=== PATIENT | female | born 1965 | race Native Hawaiian/Other Pacific Islander ===

== ENCOUNTER 2022-12-22 12:55 | Emergency (ER) | payer OTHER ==
[2022-12-22] MEDS ORDERED: BABY ASPIRIN 81 MG CHEW PO ONE (13:06)
--- NOTE | 2022-12-22 13:06 | ERPHSYRPT ---
- History of Present Illness Time Seen by Provider: 12/22/22 13:06 Historian: patient Exam Limitations: no limitations Physician History: This is a 57-year-old white female patient who presents to the emergency department with intermittent epigastric, substernal chest pain over the last 2 weeks that she describes as a pressure. At times it radiates into her back and today she became concerned because it went up into her neck on the left side. Patient has been worked up and found to have autoimmune disorders including rheumatoid arthritis, Raynaud's disease and lupus. She is also had watery diarrhea. She has been seeing a management intern and a GI specialist for these medical issues. She was also concerned about rising blood pressure. Her blood pressure on arrival to our emergency department is systolic blood pressure 140 over a diastolic blood pressure of 90. Patient does continue to smoke but is decreasing her cigarette smoking intake. Timing/Duration: week(s) (Intermittently for 2 weeks) Quality: pressure Location: substernal, central, epigastric Chest Pain Radiation: neck (Left side), back Severity of Pain-Max: mild Severity of Pain-Current: mild Modifying Factors: Improves With: nothing Associated Symptoms: edema (Not today but has noticed that at times she is having foot and ankle edema. Her management intern, primary care doctor are aware) Prior Chest Pain/Cardiac Workup: no prior cardiac workup Nitro Today/Relief: no nitro taken today Aspirin Treatment Today: no aspirin today Allergies/Adverse Reactions: No Known Drug Allergies Allergy (Unverified 12/22/22 12:57) Home Medications: Hydroxychloroquine Sulfate [Plaquenil] 200 mg PO DAILY 12/22/22 [History] Pilocarpine HCl [Salagen] 5 mg PO TID 12/22/22 [History] Varenicline Tartrate 1 mg PO DAILY 12/22/22 [History] Travel Risk - International Travel Have you traveled outside of the country in past 3 weeks: No - Coronavirus Screening Are you exhibiting any of the following symptoms?: No Close contact with a COVID-19 positive Pt in past 14-21 Days: No - Review of Systems Constitutional: No Symptoms Eyes: No Symptoms Ears, Nose, & Throat: No Symptoms Respiratory: No Symptoms Cardiac: Chest Pain Abdominal/Gastrointestinal: No Symptoms Genitourinary Symptoms: No Symptoms Musculoskeletal: No Symptoms Skin: No Symptoms Neurological: No Symptoms Psychological: No Symptoms Endocrine: No Symptoms Hematologic/Lymphatic: No Symptoms Immunological/Allergic: No Symptoms All Other Systems: Reviewed and Negative - Past Medical History Pertinent Past Medical History: Yes Other Medical History: auto immune- lupus - Past Surgical History Past Surgical History: Yes Female Surgical History: Tubal Ligation, Other Other Surgical History: breast implants - Social History Drug Use: none - Nursing Vital Signs Nursing Vital Signs: Initial Vital Signs O2 Sat by Pulse Oximetry 97 12/22/22 13:12 Pain Scale Pain Intensity 2 - Physical Exam General Appearance: no apparent distress, alert, anxiety Eye Exam: PERRL/EOMI, eyes nml inspection Ears, Nose, Throat Exam: normal ENT inspection, moist mucous membranes Neck Exam: normal inspection, non-tender, supple, full range of motion Respiratory Exam: normal breath sounds, chest tenderness, lungs clear, airway intact, No respiratory distress Cardiovascular Exam: regular rate/rhythm, normal heart sounds, normal peripheral pulses Gastrointestinal/Abdomen Exam: soft, normal bowel sounds, No tenderness Pelvic Exam: not done Rectal Exam: not done Back Exam: normal inspection, normal range of motion, No CVA tenderness, No vertebral tenderness Extremity Exam: normal inspection, normal range of motion, pelvis stable Neurologic Exam: alert, oriented x 3, cooperative, cardiovascular or nurse II-XII nml as tested, normal mood/affect, nml cerebellar function, nml station & gait, sensation nml Skin Exam: normal color, warm, dry Lymphatic Exam: No adenopathy SpO2 Interpretation: normal O2 Delivery: Room Air - Course Nursing assessment & vital signs reviewed: Yes EKG Interpreted by Me: RATE ([id number]), Left [place] Deviation, NORMAL INTERVALS, NORMAL QRS, NORMAL ST-T, Other Ordered Tests: Active Orders 24 hr Category Date Time Status Lidar Scientist STAT Care 12/22/22 13:07 Active EKG-ER Only STAT Care 12/22/22 13:06 Active IV Insertion STAT Care 12/22/22 13:06 Active Pulse Oximetry (ED) STAT Care 12/22/22 13:06 Active CHEST 1 VIEW (PORTABLE) Stat Exams 12/22/22 13:13 Completed CHEST WITH CONTRAST [CT] Stat Exams 12/22/22 14:59 Completed CBC W DIFF Stat Lab 12/22/22 13:14 Completed CMP Stat Lab 12/22/22 13:14 Completed D-DIMER QUANTITATIVE Stat Lab 12/22/22 13:14 Completed PROTIME WITH INR Stat Lab 12/22/22 13:14 Completed TROPONIN Q4H Lab 12/22/22 13:14 Completed TROPONIN Q4H Lab 12/22/22 17:15 Ordered TROPONIN Q4H Lab 12/22/22 21:15 Ordered Medication Summary Discontinued Medications Generic Name Dose Route Start Last Admin Trade Name Puneet PRN Reason Stop Dose Admin Aspirin 324 mg 12/22/22 13:06 12/22/22 13:32 Aspirin 81 Mg Tab.Chew PO 12/22/22 13:07 324 mg STAT ONE Administration Aspirin Confirm 12/22/22 13:25 Aspirin 81 Mg Tab.Chew Administered 12/22/22 13:26 Dose 324 mg .ROUTE .STK-MED ONE Sodium Chloride 500 mls @ 500 mls/hr 12/22/22 14:01 12/22/22 15:23 Sodium Chloride 0.9% 500 Ml IV 12/22/22 15:00 Infused .Q1H ONE Infusion Sodium Chloride Confirm 12/22/22 14:08 Sodium Chloride 0.9% 500 Ml Administered 12/22/22 14:09 Dose 500 mls @ ud IV .STK-MED ONE Lab/Rad Data: Laboratory Result Diagrams 12/22/22 13:14 12/22/22 13:14 Laboratory Results 12/22/22 12/22/22 12/22/22 Range/Units 13:14 13:14 13:14 WBC (4.0-10.5) x10^3/uL RBC (4.1-5.4) x10^6/uL Hgb (12.0-16.0) g/dL Hct (35-47) % MCV (78-100) fL MCH (26-32) pg MCHC (32-36) g/dL RDW (11.5-14.0) % Plt Count (150-450) x10^3/uL MPV (7.5-11.0) fL Gran % (36.0-66.0) % Immature Gran % (Auto) (0.00-0.4) % Nucleat RBC Rel Count (0.00-0.1) % Eos # (Auto) (0-0.5) x10^3/uL Immature Gran # (Auto) (0.00-0.03) x10^3u/L Absolute Lymphs (auto) (1.0-4.6) x10^3/uL Absolute Monos (auto) (0.0-1.3) x10^3/uL Absolute Nucleated RBC (0.00-0.01) x10^3u/L Lymphocytes % (24.0-44.0) % Monocytes % (0.0-12.0) % Eosinophils % (0.00-5.0) % Basophils % (0.0-0.4) % Absolute Granulocytes (1.4-6.9) x10^3/uL Basophils # (0-0.4) x10^3/uL PT 10.4 (9.4-12.5) SECONDS INR 0.95 (0.8-3.0) D-Dimer 0.64 H* (0.0-0.50) mg/L Sodium 139 (137-145) mmol/L Potassium 3.9 (3.5-5.1) mmol/L Chloride 102 (98-107) mmol/L Carbon Dioxide 28 (22-30) mmol/L Anion Gap 13.6 (5-15) MEQ/L BUN 12 (7-17) mg/dL Creatinine 0.91 (0.52-1.04) mg/dL Estimated GFR > 60.0 ML/MIN Glucose 115 H (74-106) mg/dL Calcium 9.0 (8.4-10.2) mg/dL Total Bilirubin 0.40 (0.2-1.3) mg/dL AST 24 (14-36) U/L ALT 21 (0-35) U/L Alkaline Phosphatase 45 (38-126) U/L Troponin I < 0.012 (0.000-0.034) ng/mL Serum Total Protein 7.9 (6.3-8.2) g/dL Albumin 4.1 (3.5-5.0) g/dL 12/22/22 Range/Units 13:14 WBC 3.8 L (4.0-10.5) x10^3/uL RBC 4.81 (4.1-5.4) x10^6/uL Hgb 14.4 (12.0-16.0) g/dL Hct 43.5 (35-47) % MCV 90.4 (78-100) fL MCH 29.9 (26-32) pg MCHC 33.1 (32-36) g/dL RDW 12.2 (11.5-14.0) % Plt Count 458 H (150-450) x10^3/uL MPV 8.7 (7.5-11.0) fL Gran % 67.4 H (36.0-66.0) % Immature Gran % (Auto) 0.0 (0.00-0.4) % Nucleat RBC Rel Count 0.0 (0.00-0.1) % Eos # (Auto) 0.09 (0-0.5) x10^3/uL Immature Gran # (Auto) 0.00 (0.00-0.03) x10^3u/L Absolute Lymphs (auto) 0.98 L (1.0-4.6) x10^3/uL Absolute Monos (auto) 0.15 (0.0-1.3) x10^3/uL Absolute Nucleated RBC 0.00 (0.00-0.01) x10^3u/L Lymphocytes % 25.8 (24.0-44.0) % Monocytes % 3.9 (0.0-12.0) % Eosinophils % 2.4 (0.00-5.0) % Basophils % 0.5 (0.0-0.4) % Absolute Granulocytes 2.56 (1.4-6.9) x10^3/uL Basophils # 0.02 (0-0.4) x10^3/uL PT (9.4-12.5) SECONDS INR (0.8-3.0) D-Dimer (0.0-0.50) mg/L Sodium (137-145) mmol/L Potassium (3.5-5.1) mmol/L Chloride (98-107) mmol/L Carbon Dioxide (22-30) mmol/L Anion Gap (5-15) MEQ/L BUN (7-17) mg/dL Creatinine (0.52-1.04) mg/dL Estimated GFR ML/MIN Glucose (74-106) mg/dL Calcium (8.4-10.2) mg/dL Total Bilirubin (0.2-1.3) mg/dL AST (14-36) U/L ALT (0-35) U/L Alkaline Phosphatase (38-126) U/L Troponin I (0.000-0.034) ng/mL Serum Total Protein (6.3-8.2) g/dL Albumin (3.5-5.0) g/dL - Progress Progress: improved, re-examined Air Movement: good Progress Note: 12/22/22 15:32 Chest x-ray was interpreted by the radiologist. There is no acute cardiopulmonary processes. The impression was reviewed by me. CT of the chest with contrast shows no acute cardiopulmonary processes. It is negative for pulmonary embolus. This patient's medical issue is 1 of moderate complexity. The level of com plexity and the work-up performed was based on review of the patient's past medical history, review of the patient's medication list, review of the patient's drug allergy list, history of present illness and physical findings on examination. The results of the twelve-lead EKG, chest x-ray, CT of the chest with contrast, CBC, CMP, D-dimer and troponin reviewed by me and discussed with the patient. Patient does not have any acute findings at this time. The discharge plan is for her to follow-up with her specialist and primary care provider for further evaluation and management. I also recommended that she follow-up with a bending machine operator. Blood Culture(s) Obtained: No Antibiotics given: No Counseled pt/family regarding: lab results, diagnosis, need for follow-up, rad results Medical Desision Making - Discussion of managment Agreed on:: Treatment plan, need for follow-up - Diagnostic Testing Diagnostic test were ordered, analyzed, and reviewed by me: Yes Radiological Interpretation: Reviewed by me - Risk of complications Low Risk: Low risk of morbidity from additional dx testing or treatment - Departure Departure Disposition: Home Clinical Impression: Non-cardiac chest pain, Hypertension Condition: Stable Critical Care Time: No Referrals: DOCTOR,NO FAMILY [Primary Care Provider] - Follow up/PCP as directed Additional Instructions: Take all your medications as prescribed. Follow-up with your primary care provider, management intern, signs cleaner for further evaluation and management including referral to a bending machine operator if indicated.
[2022-12-22 13:22] LABS: Absolute Neutrophil Ct (ANC) 2.56 x10^3/uL (1.4-6.9); BASOPHIL % 0.5 % (0.0-0.4); Basophil (Absolute #) 0.02 x10^3/uL (0-0.4); Eosinophil % 2.4 % (0.00-5.0); Eosinophil (Absolute #) 0.09 x10^3/uL (0-0.5); Hematocrit 43.5 % (35-47); Hemoglobin 14.4 g/dL (12.0-16.0); Lymphocyte (Absolute #) 0.98 x10^3/uL (1.0-4.6); Lymphocytes % 25.8 % (24.0-44.0); Mean Cell Volume 90.4 fL (78-100); Mean Corpuscular Hemoglobin 29.9 pg (26-32); Mean Corpuscular Hgb Concent. 33.1 g/dL (32-36); Mean Platelet Volume 8.7 fL (7.5-11.0); Monocyte (Absolute #) 0.15 x10^3/uL (0.0-1.3); Monocytes % 3.9 % (0.0-12.0); Neutrophil % 67.4 % (36.0-66.0); Platelet Count 458 x10^3/uL (150-450); Red Blood Count 4.81 x10^6/uL (4.1-5.4); Red Cell Distribution Width 12.2 % (11.5-14.0); White Blood Count 3.8 x10^3/uL (4.0-10.5)
[2022-12-22] MEDS ORDERED: BABY ASPIRIN 81 MG CHEW ONE (13:25)
--- NOTE | 2022-12-22 13:27 | XRAY ---
Indication: Chest pain. Comparison: None Portable chest demonstrates normal heart and lungs with a few incidental tiny calcified granulomas. Bony thorax intact.
[2022-12-22 13:37] LABS: ALBUMIN 4.1 g/dL (3.5-5.0); ALKALINE PHOSPHATASE 45 U/L (38-126); ANION GAP 13.6 MEQ/L (5-15); BLOOD UREA NITROGEN 12 mg/dL (7-17); CHLORIDE 102 mmol/L (98-107); Carbon Dioxide 28 mmol/L (22-30); Creatinine 1 0.91 mg/dL (0.52-1.04); EST GLOMERULAR FILTRATION RATE > 60.0 ML/MIN; Glucose 115 mg/dL (74-106); Potassium 3.9 mmol/L (3.5-5.1); SGOT/AST 24 U/L (14-36); SGPT/ALT 21 U/L (0-35); SODIUM 139 mmol/L (137-145); Total Protein 7.9 g/dL (6.3-8.2)
[2022-12-22 13:46] LABS: INR 0.95 (0.8-3.0); PROTIME 10.4 SECONDS (9.4-12.5)
[2022-12-22 13:58] LABS: D-DIMER QUANTITATIVE 0.64 mg/L (0.0-0.50)
[2022-12-22] MEDS ORDERED: Sodium Chloride 0.9% 500 ML 500 ML IV ONE ×2 (14:01→14:08)
[2022-12-22 14:10] VITALS: BP 162/97; O2SAT 97
[2022-12-22 15:26] VITALS: PULSE 60
--- NOTE | 2022-12-22 15:29 | XRAY ---
Indication: Chest pain/pressure. Elevated d-dimer. Multiple contiguous axial images obtained through the chest using 80 cc Isovue 370 contrast and PE protocol. Comparison: None Good opacification of the pulmonary arteries including lobar and segmental branches. No pulmonary embolus. Heart is not enlarged. Aorta is normal in course and caliber. No pathologic mediastinal/hilar lymphadenopathy. Lungs demonstrates mild bilateral dependent atelectasis and minimal left base subsegmental atelectasis/scarring. No suspicious pulmonary mass, infiltrate, effusion, or pneumothorax. Bony thorax intact with minimal generative changes throughout the spine, pectus excavatum deformity, and bilateral breast implants. Limited upper abdomen including adrenal glands are unremarkable. Impression: 1. Negative pulmonary embolus. No acute cardiopulmonary abnormalities. 2. Incidental bilateral dependent atelectasis and chronic bony findings.
== END 2022-12-22 15:46 | disposition home or self-care (01) ==
LOC: ED 12:55
DX: R07.89 Other chest pain (principal); I10 Essential (primary) hypertension; R10.13 Epigastric pain; R19.7 Diarrhea, unspecified; Z79.899 Other long term (current) drug therapy; Z72.0 Tobacco use
CPT/HCPCS: 36000; 36415; 71045; 71260; 80053; 84484; 85025; 85379; 85610; 93005; 93041; 94760; 99284; A9270-GY